=== PATIENT | female | born 1960 | race African-American/Black ===

== ENCOUNTER 2018-06-11 06:49 | Observation (INO) ==
[2018-06-11 06:54] VITALS: TEMP 97.8
--- NOTE | 2018-06-11 07:21 | ED ---
HPI General Chief Complaint: Chest Pain Stated Complaint: chest pressure, neck and back pain Time Seen by Provider: 06/11/18 07:13 Source: patient Mode of arrival: ambulatory Limitations: no limitations History of Present Illness HPI narrative: 57-year-old female complains of chest pressure in the left chest which started yesterday evening, about 16 hours prior to ER arrival at rest. She is unable to sleep at night. No shortness of breath fever or cough. No exertional component. No radiation to left arm. Associated symptoms include anxiety and a sense of impending doom. Patient notes the sense of impending doom is more chronic in nature lasting months. She reports a history of diabetes hypertension hyperlipidemia. She quit smoking 5 years ago. Her mother , approximately 85 years old, was recently diagnosed with myocardial infarction. Patient denies similar prior episodes. MD complaint: chest pain Complete Quality Measures for STEMI Alert Patients Onset: during rest Pain location: substernal and left chest Quality: heaviness Treatments prior to arrival chest pain: none Related Data Home Medications Medication Instructions Recorded Confirmed amlodipine 5 mg PO DAILY 06/11/18 06/11/18 levothyroxine 25 mcg PO DAILY 06/11/18 06/11/18 metformin 500 mg PO DAILY 06/11/18 06/11/18 simvastatin 20 mg PO QPM 06/11/18 06/11/18 Allergies Allergy/AdvReac Type Severity Reaction Status Date / Time No Known Allergies Allergy Verified 06/11/18 06:54 Review of Systems ROS: all other systems reviewed are negative Constitutional Denies fever(s) and Denies increased appetite PMFSH Social History Social History Substance History: No History of Abuse Second Hand Smoke Exposure: No Smoking Status: Former smoker Tobacco Type: Cigarettes How Often Do You Have a Drink Containing Alcohol: Never Recent Travel in [facility] within the Last 8 Weeks: No Recent Out of Country Travel within the Last 8 Weeks: No Immunization History Tetanus Immunization: >5 Years Hx Influenza Vaccine This Season: No Exam Narrative Exam Narrative: GENERAL: 57-year-old female well-nourished well-developed cooperative pleasant SKIN: Focused skin assessment warm/dry. HEAD: Atraumatic. Normocephalic. EYES: Pupils equal and round. No scleral icterus. No injection or drainage. ENT: No nasal bleeding or discharge. Mucous membranes pink and moist. NECK: Trachea midline. No JVD. CARDIOVASCULAR: Regular rate and rhythm. No murmur appreciated. RESPIRATORY: No accessory muscle use. Clear to auscultation. Breath sounds equal bilaterally. GASTROINTESTINAL: Abdomen soft, non-tender, nondistended. Hepatic and splenic margins not palpable. MUSCULOSKELETAL: No obvious deformities. No clubbing. No cyanosis. No edema. NEUROLOGICAL: Awake and alert. No obvious cranial nerve deficits. Motor grossly within normal limits. Normal speech. PSYCHIATRIC: Appropriate mood and affect; insight and judgment normal. Course Initial Documented Vital Signs Temperature 97.8 F 06/11/18 06:51 Pulse Rate 110 H 06/11/18 06:51 Respiratory Rate 20 06/11/18 06:51 Blood Pressure 168/99 H 06/11/18 06:51 Pulse Oximetry 97 06/11/18 06:51 Last Documented Vital Signs Temperature 97.8 F 06/11/18 06:51 Pulse Rate 89 06/11/18 08:41 Respiratory Rate 16 06/11/18 08:41 Blood Pressure 118/71 06/11/18 08:41 Pulse Oximetry 99 06/11/18 08:41 Medical Decision Making [facility] Narrative Medical decision making narrative: The patient is 57-year-old female who arrives with chest pain. Multiple risk factors include diabetes hypertension hyperlipidemia and a family history. Chest pain center protocol considered a reasonable next step. The elevated potassium reveals no abnormal/hyperkalemic EKG change. Stat repeat K added on. Medical Screen Exam Complete: Yes Emergency Medical Condition: Yes Lab Data Lab results reviewed: Yes I reviewed the patient's lab results. Result diagrams: 06/11/18 07:20 06/11/18 13:39 Lab Results 06/11/18 06/11/18 06/11/18 Range/Units 07:20 07:20 13:39 WBC 5.9 (4.0-11.0) th/mm3 RBC 5.41 H (4.00-5.30) mil/mm3 Hgb 12.3 (11.6-15.3) gm/dL Hct 38.4 (35.0-46.0) % MCV 71.1 L (80.0-100.0) fL MCH 22.7 L (27.0-34.0) pg MCHC 32.0 (32.0-36.0) % RDW 14.5 (11.6-17.2) % Plt Count 242 (150-450) th/mm3 MPV 7.9 (7.0-11.0) fL Neut % (Auto) 42.3 (16.0-70.0) % Lymph % (Auto) 44.0 (9.0-44.0) % [place] % (Auto) 10.6 H (0.0-8.0) % Eos % (Auto) 2.8 (0.0-4.0) % Baso % (Auto) 0.3 (0.0-2.0) % Neut # (Auto) 2.5 (1.8-7.7) th/mm3 Lymph # (Auto) 2.6 (1.0-4.8) th/mm3 [place] # (Auto) 0.6 (0.0-0.9) th/mm3 Eos # (Auto) 0.2 (0.0-0.4) th/mm3 Baso # (Auto) 0.0 (0.0-0.2) th/mm3 WBC Differential . Differential Comment Auto diff final Sodium 141 (136-145) meq/L Potassium 5.6 H 4.1 D (3.5-5.1) meq/L Chloride 105 (98-107) meq/L Carbon Dioxide 26.4 (21.0-32.0) meq/L Anion Gap 10 (5-15) meq/L BUN 16 (7-18) mg/dL Creatinine 1.35 H (0.50-1.00) mg/dL Estimated GFR 49 L (>89) mL/min POC Glucose (68-110) mg/dl Random Glucose 92 (74-106) mg/dL Calcium 9.0 (8.5-10.1) mg/dL Total Bilirubin 0.4 (0.2-1.0) mg/dL AST 46 H (15-37) U/L ALT 23 (10-53) U/L Alkaline Phosphatase 57 (45-117) U/L Troponin I Less than 0.02 L (0.02-0.05) ng/mL Total Protein 8.5 H (6.4-8.2) g/dL Albumin 3.7 (3.4-5.0) g/dL 06/11/18 Range/Units 14:12 WBC (4.0-11.0) th/mm3 RBC (4.00-5.30) mil/mm3 Hgb (11.6-15.3) gm/dL Hct (35.0-46.0) % MCV (80.0-100.0) fL MCH (27.0-34.0) pg MCHC (32.0-36.0) % RDW (11.6-17.2) % Plt Count (150-450) th/mm3 MPV (7.0-11.0) fL Neut % (Auto) (16.0-70.0) % Lymph % (Auto) (9.0-44.0) % [place] % (Auto) (0.0-8.0) % Eos % (Auto) (0.0-4.0) % Baso % (Auto) (0.0-2.0) % Neut # (Auto) (1.8-7.7) th/mm3 Lymph # (Auto) (1.0-4.8) th/mm3 [place] # (Auto) (0.0-0.9) th/mm3 Eos # (Auto) (0.0-0.4) th/mm3 Baso # (Auto) (0.0-0.2) th/mm3 WBC Differential Differential Comment Sodium (136-145) meq/L Potassium (3.5-5.1) meq/L Chloride (98-107) meq/L Carbon Dioxide (21.0-32.0) meq/L Anion Gap (5-15) meq/L BUN (7-18) mg/dL Creatinine (0.50-1.00) mg/dL Estimated GFR (>89) mL/min POC Glucose 91 (68-110) mg/dl Random Glucose (74-106) mg/dL Calcium (8.5-10.1) mg/dL Total Bilirubin (0.2-1.0) mg/dL AST (15-37) U/L ALT (10-53) U/L Alkaline Phosphatase (45-117) U/L Troponin I (0.02-0.05) ng/mL Total Protein (6.4-8.2) g/dL Albumin (3.4-5.0) g/dL Imaging Data Radiologist's impression: Chest X-Ray 06/11/18 07:14 CONCLUSION: Negative examination. Myocardial Perfusion Scan Nuc Med 06/11/18 10:26 CONCLUSION: 1. No reversible defects observed to suggest acute ischemia. ECG Data EKG Prior to Arrival: No Attestation: I personally reviewed and interpreted this ECG as follows: (Sinus rate 86 normal axis intervals no ischemic injury pattern) Discharge Plan Discharge Disposition Patient Disposition: 30 Still Patient Discharge Condition Condition: Stable Discharge Order Discharge Orders: Discharge Order (Routine); Ordered 06/11/18 Ordered By: Sreedhar Razo Physicians Team ED Provider: Russell Gonzalez Primary Care Provider: Tg Wang, Attending Provider: Margarito Block Status ED Status: Left Department Discharge Information Discharge Date/Time: 06/11/18 10:31
[2018-06-11 07:37] LABS: Baso % (Auto) 0.3 % (0.0-2.0); Eos # (Auto) 0.2 th/mm3 (0.0-0.4); Eos % (Auto) 2.8 % (0.0-4.0); Hematocrit 38.4 % (35.0-46.0); Hemoglobin 12.3 gm/dL (11.6-15.3); Lymph # (Auto) 2.6 th/mm3 (1.0-4.8); Mean Corpuscular Hemoglobin 22.7 pg (27.0-34.0); Mean Corpuscular Volume 71.1 fL (80.0-100.0); Mean Platelet Volume 7.9 fL (7.0-11.0); Mono # (Auto) 0.6 th/mm3 (0.0-0.9); Mono % (Auto) 10.6 % (0.0-8.0); Neut # (Auto) 2.5 th/mm3 (1.8-7.7); Neut % (Auto) 42.3 % (16.0-70.0); Platelet Count 242 th/mm3 (150-450); Red Blood Count 5.41 mil/mm3 (4.00-5.30); Red Cell Distribution Width 14.5 % (11.6-17.2); White Blood Count 5.9 th/mm3 (4.0-11.0)
--- NOTE | 2018-06-11 07:47 | XR ---
EXAM DATE: 06/11/2018 7:41 AM EDT AGE/SEX: 57 years / Female INDICATIONS: Mid sternal chest pains and pressure x2 days. Shortness of breath. CLINICAL DATA: This is the patient's initial encounter. Patient reports that signs and symptoms have been present for 2 days and indicates a pain score of 9/10. MEDICAL/SURGICAL HISTORY: None. None. COMPARISON: No prior exams available for comparison. FINDINGS: A single AP view of the chest demonstrates the lungs to be symmetrically aerated without evidence of mass, infiltrate or effusion. The cardiomediastinal contours are unremarkable. Osseous structures a re intact. CONCLUSION: Negative examination. Electronically signed by: Kehinde Reeder MD 06/11/2018 7:45 AM EDT
[2018-06-11 08:03] LABS: Alkaline Phosphatase 57 U/L (45-117); Total Protein 8.5 g/dL (6.4-8.2)
[2018-06-11 08:18] LABS: Alanine Aminotransferase 23 U/L (10-53); Albumin 3.7 g/dL (3.4-5.0); Anion Gap 10 meq/L (5-15); Blood Urea Nitrogen 16 mg/dL (7-18); Carbon Dioxide 26.4 meq/L (21.0-32.0); Chloride 105 meq/L (98-107); Glomerular Filtration Rate 49 mL/min (>89); Glucose,Random 92 mg/dL (74-106); Sodium 141 meq/L (136-145)
[2018-06-11 08:21] LABS: Aspartate Aminotransferase 46 U/L (15-37); Potassium 5.6 meq/L (3.5-5.1)
[2018-06-11] MEDS ORDERED: Acetaminophen 500 MG Tablet PO ONE (08:32)
--- NOTE | 2018-06-11 10:32 | P.HPCA ---
History of Present Illness Primary Care Physician: Tg Wang Chief Complaint: Chest pain History of Present Illness: This is a 57-year-old female history of diabetes, hypertension, hyperlipidemia, and hypothyroidism that presents to ED with complaint of chest discomfort. Patient states she has had 2 days of chest pressure and points to the center of her chest. It began 2 nights ago while she was resting at home. She states is still there. States the pressure is worse when she lies down. Found nothing otherwise to change the symptoms. Denies actual shortness of breath. Denies nausea or diaphoresis. Cannot recall prior cardiac workup. - Diagnosis (1) Chest pain (2) Diabetes (3) Hypertension (4) Hyperlipidemia Review of Systems General: Patient denies fevers, chills, and recent travel. HEENT: Patient denies headache, sore throat, difficulty swallowing. Cardiovascular: Has the chest discomfort as mentioned above. Denies sensation of heart beating rapidly or irregularly. No syncope. Denies diaphoresis. Respiratory: Denies shortness of breath or inspirational chest discomfort. Denies coughing wheezing or hemoptysis. GI: Patient denies nausea, vomiting, diarrhea, abdominal pain, bloody stools. Musculoskeletal: Patient denies joint pain or edema. Denies calf pain or edema. Neurovascular: Patient denies numbness, tingling, weakness in extremities. Denies headache. Endocrine: Denies polyuria and polydipsia. Hematologic: Denies easy bruising. Skin: Denies rash or itching. PMFSH - History History Provided By: Patient - Medical History Medical History: Medical History (Last Reviewed 06/11/18 @ 10:22 by Mena Hannon RN) Diabetes Hypothyroid Patient denies medical problems - Surgical History Surgical History: Surgical History (Last Reviewed 06/11/18 @ 10:22 by Mena Hannon RN) No history of previous surgery - Tobacco History Second Hand Smoke Exposure: No Tobacco Use In Past 30 Days: No Smoking Status: Former smoker Tobacco Type: Cigarettes - Alcohol History How Often Do You Have a Drink Containing Alcohol: Never - Substance Use History Substance History: No History of Abuse - Travel History Recent Travel in the [place] Within the Last 8 Weeks: No Recent Travel Out of the Country Within the Last 8 Weeks: No - Immunization History Tetanus Immunization: >5 Years Hx Influenza Vaccine This Season: No Medications and Allergies Active Medications: Active Medications Sodium Chloride (Ns Flush) 2 ml IV.FLUSH UNSCH PRN PRN Reason: FLUSH AFTER USING IV ACCESS Allergies Allergy/AdvReac Type Severity Reaction Status Date / Time No Known Allergies Allergy Verified 06/11/18 06:54 Home Medications Medication Instructions Recorded Confirmed Type amlodipine 5 mg PO DAILY 06/11/18 06/11/18 History levothyroxine 25 mcg PO DAILY 06/11/18 06/11/18 History metformin 500 mg PO DAILY 06/11/18 06/11/18 History simvastatin 20 mg PO QPM 06/11/18 06/11/18 History Exam Vital signs: Vital Signs 06/11/18 06:51 06/11/18 07:24 06/11/18 07:26 Temperature 97.8 F Pulse Rate 110 H Respiratory Rate 20 Blood Pressure 168/99 H 167/87 H Pulse Oximetry 97 94 L 06/11/18 08:41 Temperature Pulse Rate 89 Respiratory Rate 16 Blood Pressure 118/71 Pulse Oximetry 99 Intake & Output 06/10/18 06/11/18 06/11/18 18:59 06:59 18:59 Weight 82.554 kg Narrative: GENERAL: This is a well-nourished, well-developed patient, in no apparent distress. Patient speaks in clear complete sentences. Patient is pleasant. HEENT: Head is atraumatic and normocephalic. Neck is supple without lymphadenopathy and trachea is midline. No JVD or carotid bruits. CARDIOVASCULAR: Regular rate and rhythm without murmurs, gallops, or rubs. RESPIRATORY: Clear to auscultation. Breath sounds equal bilaterally. No wheezes , rales, or rhonchi. Chest wall is tender. No use of accessory muscles. GASTROINTESTINAL: Abdomen is nontender, nondistended. Abdomen soft. No obvious pulsatile mass or bruit. No CVA tenderness. Strong femoral pulses bilaterally. Normal bowel sounds in all quadrants. MUSCULOSKELETAL: Patient is moving upper and lower extremities freely. No calf tenderness or edema, no Homans sign. Strong pulses in upper and lower extremities. NEUROLOGICAL: Patient is alert and oriented. Cranial nerves 2-12 are grossly intact. No focal deficits and speech is clear. SKIN: No rash and turgor is normal. Results 06/11/18 07:20 06/11/18 07:20 Cardiac Enzymes 06/11/18 Range/Units 07:20 AST 46 H (15-37) U/L Troponin I Less than 0.02 L (0.02-0.05) ng/mL CBC 06/11/18 Range/Units 07:20 WBC 5.9 (4.0-11.0) th/mm3 RBC 5.41 H (4.00-5.30) mil/mm3 Hgb 12.3 (11.6-15.3) gm/dL Hct 38.4 (35.0-46.0) % Plt Count 242 (150-450) th/mm3 Neut # (Auto) 2.5 (1.8-7.7) th/mm3 Lymph # (Auto) 2.6 (1.0-4.8) th/mm3 [place] # (Auto) 0.6 (0.0-0.9) th/mm3 Eos # (Auto) 0.2 (0.0-0.4) th/mm3 Baso # (Auto) 0.0 (0.0-0.2) th/mm3 Comprehensive Metabolic Panel 06/11/18 Range/Units 07:20 Sodium 141 (136-145) meq/L Potassium 5.6 H (3.5-5.1) meq/L Chloride 105 (98-107) meq/L Carbon Dioxide 26.4 (21.0-32.0) meq/L BUN 16 (7-18) mg/dL Creatinine 1.35 H (0.50-1.00) mg/dL Calcium 9.0 (8.5-10.1) mg/dL AST 46 H (15-37) U/L ALT 23 (10-53) U/L Alkaline Phosphatase 57 (45-117) U/L Total Protein 8.5 H (6.4-8.2) g/dL Albumin 3.7 (3.4-5.0) g/dL Intake and Output 06/10/18 06/11/18 06/11/18 22:59 06:59 14:59 Other: Weight 82.554 kg EKG interpretations - EKG EKG shows: sinus rhythm (Initial EKG is sinus rhythm without significant ST segment depressions or elevations.) Caprini VTE Risk Assessment Caprini VTE Risk Assessment: No/Low Risk (score <= 1) Caprini Risk Assessment Model: Point Value = 1 Point Value = 2 Point Value = 3 Point Value = 5 Age 41-60 Minor surgery BMI > 25 kg/m2 Swollen legs Varicose veins or History of unexplained or recurrent spontaneous Oral contraceptives or hormone replacement Sepsis (< 1 month) Serious lung disease, including pneumonia (< 1 month) Abnormal pulmonary function Acute myocardial infarction Congestive heart failure (< 1 month) History of inflammatory bowel disease Medical patient at bed rest Age 61-74 Arthroscopic surgery Major open surgery (> 45 min) Laparoscopic surgery (> 45 min) Malignancy Confined to bed (> 72 hours) Immobilizing plaster cast Central venous access Age >= 75 History of VTE Family history of VTE Factor V Leiden Prothrombin [id number] Lupus anticoagulant Anticardiolipin antibodies Elevated serum homocysteine Heparin-induced thrombocytopenia Other congenital or acquired thrombophilia Stroke (< 1 month) Elective arthroplasty Hip, pelvis, or leg fracture Acute spinal cord injury (< 1 month) Prophylaxis Regimen: Total Risk Factor Score Risk Level Prophylaxis Regimen 0-1 Low Early ambulation 2 Moderate Order ONE of the following: *Sequential Compression Device (SCD) *Heparin 5000 units SQ BID 3-4 Higher Order ONE of the following medications: *Heparin 5000 units SQ TID *Enoxaparin/Lovenox 40 mg SQ daily (WT < 150 kg, CrCl > 30 mL/min) *Enoxaparin/Lovenox 30 mg SQ daily (WT < 150 kg, CrCl > 10-29 mL/min) *Enoxaparin/Lovenox 30 mg SQ BID (WT < 150 kg, CrCl > 30 mL/min) AND/OR *Sequential Compression Device (SCD) 5 or more Highest Order ONE of the following medications: *Heparin 5000 units SQ TID (Preferred with Epidurals) *Enoxaparin/Lovenox 40 mg SQ daily (WT < 150 kg, CrCl > 30 mL/min) *Enoxaparin/Lovenox 30 mg SQ daily (WT < 150 kg, CrCl > 10-29 mL/min) *Enoxaparin/Lovenox 30 mg SQ BID (WT < 150 kg, CrCl > 30 mL/min) AND *Sequential Compression Device (SCD) Assessment and Plan - Assessment (1) Chest pain Code(s): R07.9 - Chest pain, unspecified Status: Acute (2) Diabetes Code(s): E11.9 - Type 2 diabetes mellitus without complications Status: Acute (3) Hypertension Code(s): I10 - Essential (primary) hypertension Status: Acute (4) Hyperlipidemia Code(s): E78.5 - Hyperlipidemia, unspecified Status: Acute - Plan * Chest pain: Patient had first set of cardiac enzymes and EKG is having discomfort constantly for approximately 2 days. Her symptoms A. Atypical however she has multiple risk factors. She was seen by Dr. Block of cardiology in the chest pain center. She will undergo a Lexiscan as she does not believe she would walk on a treadmill long enough. Patient will be discharged home if her stress test is nonischemic with instructions to follow- up with PCP and return to ED for interval issues. * Hypertension: Continue medication. * Hyperlipidemia: Continue medication. * Diabetes: Sliding scale insulin coverage while in chest pain center. Resume medication at discharge. She should follow diabetic diet. Patient is stable at this time. She is agreeable to this plan.
--- NOTE | 2018-06-11 11:15 | P.PNCA ---
Subjective Interval history: 58-year-old lady presents with complaints of having felt very depressed and overwhelmed by a feeling of impending doom. She has been unemployed for about 7 years due to a reported back injury. She has not been able to obtain disability and has been living with 1 of the other of her daughters. She feels that she is useless that she is a burden to her children and that she is going to end up and alone. Recently her daughter apparently told her she was going to take her out and get her a job which caused her to reflect on the fact that her daughter is tired of having to take care of her. The last day or so she is also been noticing a constant fairly severe discomfort in her mid chest. Current history is as documented my only addition is regarding the degree of her protracted depression. I did discuss options with her and at least she is talking with her microbiology instructor. Physical Exam Vital signs: Vital Signs 06/11/18 06:51 06/11/18 07:24 06/11/18 07:26 Temperature 97.8 F Pulse Rate 110 H Respiratory Rate 20 Blood Pressure 168/99 H 167/87 H Pulse Oximetry 97 94 L 06/11/18 08:41 Temperature Pulse Rate 89 Respiratory Rate 16 Blood Pressure 118/71 Pulse Oximetry 99 Intake & Output 06/10/18 06/11/18 06/11/18 18:59 06:59 18:59 Weight 82.554 kg Narrative: I agree with the documented history only adding that the patient is exquisitely tender to palpation along the left costochondral junction but somewhat diffusely through the anterior chest as well. Her current chest pain appears to be fairly clearly costochondral in nature Assessment and Plan - Assessment (1) Chest pain Code(s): R07.9 - Chest pain, unspecified Status: Acute Plan: After full discussion with the physician flat sheet maker we will evaluate her for chest pain center protocol. If she is negative as is expected she will be discharged with recommendation that she seeks some psychiatric counseling. She apparently has gained access to [facility] and is encouraged to discuss this problem with them. (2) Diabetes Code(s): E11.9 - Type 2 diabetes mellitus without complications Status: Acute (3) Hypertension Code(s): I10 - Essential (primary) hypertension Status: Acute (4) Hyperlipidemia Code(s): E78.5 - Hyperlipidemia, unspecified Status: Acute - Plan * Chest pain: Patient had first set of cardiac enzymes and EKG is having discomfort constantly for approximately 2 days. Her symptoms A. Atypical however she has multiple risk factors. She was seen by Dr. Block of cardiology in the chest pain center. She will undergo a Lexiscan as she does not believe she would walk on a treadmill long enough. Patient will be discharged home if her stress test is nonischemic with instructions to follow- up with PCP and return to ED for interval issues. * Hypertension: Continue medication. * Hyperlipidemia: Continue medication. * Diabetes: Sliding scale insulin coverage while in chest pain center. Resume medication at discharge. She should follow diabetic diet. Patient is stable at this time. She is agreeable to this plan.
[2018-06-11] MEDS ORDERED: Regadenoson Inj 0.4 MG/5 ML Syringe IV.PUSH ONE (12:14)
--- NOTE | 2018-06-11 13:37 | NM ---
EXAM DATE: 06/11/2018 1:34 PM EDT AGE/SEX: 57 years / Female INDICATIONS:Angina. . Left chest pain. CLINICAL DATA: This is the patient's initial encounter. Patient reports that signs and symptoms have been present for 1 day and indicates a pain score of 4/10. MEDICAL/SURGICAL HISTORY: Diabetes mellitus type II. None. COMPARISON: No prior exams available for comparison. DOSE: 8.4 mCi Tc 99m Myoview at rest 25.8 mCi [id number] at stress 0.4 mg Lexiscan STRESS SYMPTOMS: Nausea, dizziness, and lightheadedness. EJECTION FRACTION: >70 % TECHNIQUE: The patient underwent pharmacologic stress with infusion of prescribed dose. Continuous ECG tracing was monitored during stress. Gated SPECT imaging was performed after stress and conventi onal SPECT imaging was performed at rest. The examination was performed on a SPECT/CT scanner, both attenuation and non-corrected datasets were reviewed. FINDINGS: Distribution: The maximum perfused segment at stress is in the inferior wall. Perfusion Study: The pattern of perfusion at stress is within normal limits. Gated Study: There are intact wall motion and wall thickening without hypokinetic or dyskinetic segm ents. The ejection fraction is calculated at >70%. RISK CATEGORY: Low (<1% Annual Motality Rate) CONCLUSION: 1. No reversible defects observed to suggest acute ischemia. Electronically signed by: Louie Costa MD 06/11/2018 1:36 PM EDT
--- NOTE | 2018-06-11 18:43 | ECG ---
Date Performed: 06/11/2018 Time Performed: 07:02:18 PTAGE: 57 years EKG: Sinus rhythm NORMAL ECG INTERPRETATION BASED ON A DEFAULT AGE OF 40 YEARS PREVIOUS TRACING : 05/19/2010 18.49 Since the previous tracing, no significant change not ed DOCTOR: Tu Ram Interpretating Date/Time 06/11/2018 18:42:27
[2018-06-12] MEDS ORDERED: amLODIPine 5 MG Tablet PO SCH (09:00)
--- NOTE | 2018-06-12 13:47 | TR ---
Date Performed: 06/11/2018 Time Performed: 12:00:16 DOCTOR: Margarito Block DRUG LIST: CLINICAL HISTORY: REASON FOR TEST: CHEST PAIN REASON FOR ENDING: OBSERVATION: CONCLUSION: Lexiscan stress test was performed under standard four minute protocol. Radionuclide was injected one minute prior to ending the test. No electrocardiographic abormalities were present to suggest ischemia. Nuclear imaging and interpretation are pending. COMMENTS:
[2018-06-18 15:20] VITALS: BP 118/71; PULSE 89; RESP 16; O2SAT 99
== END 2018-06-11 15:24 | disposition home or self-care (01) ==
LOC: NEPE 06:49 → NEDA 06:49 → NEPHCDU 10:13
PROVIDERS: ADMIT Internal Medicine Interventional Cardiology; ATTEND Internal Medicine Interventional Cardiology